=== PATIENT | female | born 1980 | race Caucasian/White ===

== ENCOUNTER 2022-08-01 13:19 | Emergency (ER) | payer SELFPAY ==
[2022-08-01 13:46] VITALS: BP 150/94; PULSE 78; RESP 18; TEMP 97.3; BMI 37.5
[2022-08-01] MEDS ORDERED: LIDOCAINE 5% TOPICAL PATCH TP ONE (14:37)
[2022-08-01] MEDS ORDERED: METHOCARBAMOL 500 MG TABLET PO ONE (14:42)
[2022-08-01] MEDS ORDERED: KETOROLAC TROMETHAMINE 30 MG/1 ML VIAL IM ONE (14:42)
[2022-08-01] MEDS ORDERED: METHOCARBAMOL 500 MG TABLET ONE (15:08)
[2022-08-01] MEDS ORDERED: KETOROLAC TROMETHAMINE 30 MG/1 ML VIAL ONE (15:08)
[2022-08-01] MEDS ORDERED: LIDOCAINE 5% TOPICAL PATCH ONE (15:08)
[2022-08-01 15:43] LABS: URINE APPEARANCE CLEAR; URINE BILIRUBIN NEGATIVE (NEGATIVE); URINE COLOR YELLOW; URINE GLUCOSE (UA) NEGATIVE (NEGATIVE); URINE KETONE NEGATIVE (NEGATIVE); URINE LEUK ESTERASE NEGATIVE (NEGATIVE); URINE NITRITE NEGATIVE (NEGATIVE); URINE PROTEIN NEGATIVE (NEGATIVE); URINE UROBILINOGEN 0.2 mg/dL (0.2-1.0)
[2022-08-01 15:48] LABS: HCG,QUALITATIVE URINE Negative
== END 2022-08-01 17:11 | disposition home or self-care (01) ==
LOC: JERFT 13:19 → JER 13:19 → JERFT 17:11
PROC: 3E023GC Introduction of Other Therapeutic Substance into Muscle, Percutaneous Approach (ICD-10-PCS; principal; 2022-08-01)
DX: S39.012A Strain of muscle, fascia and tendon of lower back, initial encounter (principal); M54.42 Lumbago with sciatica, left side; W19.XXXA Unspecified fall, initial encounter; W22.03XA Walked into furniture, initial encounter
CPT/HCPCS: 72131-TC; 81003; 84703; 87086; 99284-25

== ENCOUNTER 2023-07-01 17:57 | Emergency (ER) | payer OTHER ==
[2023-07-01 18:15] VITALS: RESP 18; BMI 49.8
[2023-07-01] MEDS ORDERED: ACETAMINOPHEN INJECTION 100 ML IVPB ONE (20:59)
[2023-07-01] MEDS ORDERED: FAMOTIDINE 20 MG/50 ML IVPB 20 MG/50 ML MG IVPB ONE (20:59)
[2023-07-01] MEDS: LACTATED RINGERS SOLUTION 1000 ML INFUS.BAG IV ONE (21:07)
[2023-07-01] MEDS: FAMOTIDINE 20 MG/50 ML IVPB 20 MG/50 ML MG IVPB ONE (21:08)
[2023-07-01] MEDS: ACETAMINOPHEN 1000 MG/100 ML BAG IVPB ONE (21:08)
[2023-07-01 21:21] LABS: EPI CELLS >36 /uL (0-25.1); HYALINE CASTS 0 /uL (0-3.1); PH,URINE 5.5 (5.0-8.0); URINE APPEARANCE CLOUDY; URINE BACTERIA 1312 /uL (0-1359); URINE BILIRUBIN NEGATIVE (NEGATIVE); URINE COLOR YELLOW; URINE GLUCOSE (UA) NEGATIVE (NEGATIVE); URINE KETONE NEGATIVE (NEGATIVE); URINE LEUK ESTERASE 1+ (NEGATIVE); URINE NITRITE NEGATIVE (NEGATIVE); URINE PROTEIN NEGATIVE (NEGATIVE); URINE RBC 11 /uL (0-23.9); URINE UROBILINOGEN 0.2 mg/dL (0.2-1.0); URINE WBC 58 /uL (0-25.8)
[2023-07-01 22:08] LABS: BASO % 0.6 % (0-2.0); EOS % 4.8 % (0-4.5); HEMATOCRIT 33.8 % (32.4-45.2); LYMPH % 35.8 % (8-40); MCH 23.8 pg (25.7-33.7); MCHC 32.4 g/dl (32.0-36.0); MEAN CELL VOLUME 73.6 fl (80-96); MEAN PLT VOLUME 8.3 fl (7.5-11.1); MONO % 6.3 % (3.8-10.2); NEUT % 52.5 % (42.8-82.8); PLATELET COUNT 306 10^3/uL (134-434); RDW 16.5 % (11.6-15.6)
[2023-07-01 22:15] LABS: POTASSIUM 3.9 mmol/L (3.5-5.1)
[2023-07-01 22:17] LABS: ALBUMIN 3.2 g/dl (3.4-5.0); BLOOD UREA NITROGEN 10.2 mg/dL (7-18)
[2023-07-01 22:21] LABS: BILIRUBIN,TOTAL 0.2 mg/dL (0.2-1); CREATININE 0.5 mg/dL (0.55-1.3); TOT PROT 6.9 g/dl (6.4-8.2)
[2023-07-02] MEDS ORDERED: CEFTRIAXONE 1 GM/50 ML BAG ONE (01:54)
[2023-07-02] MEDS: CEFTRIAXONE 1,000 MG in DEXTROSE 5%-WATER - 50 ML IVPB ONE (01:59)
[2023-07-02 02:48] VITALS: BP 125/69; PULSE 75; TEMP 98.1
== END 2023-07-02 02:47 | disposition home or self-care (01) ==
LOC: JERFT 17:57 → JER 17:57
PROC: 3E033NZ Introduction of Analgesics, Hypnotics, Sedatives into Peripheral Vein, Percutaneous Approach (ICD-10-PCS; 2023-07-01)
PROC: 3E03329 Introduction of Other Anti-infective into Peripheral Vein, Percutaneous Approach (ICD-10-PCS; principal; 2023-07-02)
PROC: 3E033GC Introduction of Other Therapeutic Substance into Peripheral Vein, Percutaneous Approach (ICD-10-PCS; 2023-07-02)
DX: N39.0 Urinary tract infection, site not specified (principal); R10.30 Lower abdominal pain, unspecified; R30.0 Dysuria; R30.9 Painful micturition, unspecified
CPT/HCPCS: 36415; 74177-TC; 80053; 81003; 84703; 85025; 96365; 96375; 99285-25; J0131

== ENCOUNTER 2023-08-11 10:38 | Emergency (ER) | payer OTHER ==
[2023-08-11 10:52] VITALS: RESP 18; BMI 42.9
[2023-08-11] MEDS ORDERED: KETOROLAC TROMETHAMINE 15 MG/ML VIAL ONE (12:29)
[2023-08-11 12:35] LABS: BASO % 1.5 % (0-2.0); EOS % 5.3 % (0-4.5); HEMATOCRIT 35.6 % (32.4-45.2); LYMPH % 26.6 % (8-40); MCH 22.9 pg (25.7-33.7); MCHC 31.1 g/dl (32.0-36.0); MEAN CELL VOLUME 73.8 fl (80-96); MEAN PLT VOLUME 8.6 fl (7.5-11.1); MONO % 6.8 % (3.8-10.2); NEUT % 59.8 % (42.8-82.8); PLATELET COUNT 379 10^3/uL (134-434); RBC 4.82 M/mm3 (3.60-5.2); RDW 16.8 % (11.6-15.6); WHITE BLOOD COUNT 9.5 K/mm3 (4.0-10.0)
[2023-08-11 12:55] LABS: CHLORIDE 106 mmol/L (98-107); SODIUM 133 mmol/L (136-145)
[2023-08-11 12:57] LABS: CALCIUM 8.7 mg/dL (8.5-10.1)
[2023-08-11 12:58] LABS: ALBUMIN 3.2 g/dl (3.4-5.0); BLOOD UREA NITROGEN 13.5 mg/dL (7-18); CO2 24 mmol/L (21-32); GLUCOSE,RANDOM 90 mg/dL (74-106)
[2023-08-11] MEDS: KETOROLAC TROMETHAMINE 15 MG/ML VIAL IVPUSH ONE (12:58)
[2023-08-11 13:02] LABS: CREATININE 0.7 mg/dL (0.55-1.3); SGOT/AST 85 U/L (15-37); SGPT/ALT 35 U/L (13-61)
[2023-08-11 13:03] LABS: BILIRUBIN,TOTAL 0.5 mg/dL (0.2-1); TOT PROT 7.4 g/dl (6.4-8.2)
[2023-08-11 13:05] LABS: ALK PHOS 93 U/L (45-117)
[2023-08-11 13:08] LABS: ANION GAP 2 mmol/L (4-13); POTASSIUM 6.8 mmol/L (3.5-5.1)
[2023-08-11] MEDS ORDERED: ACETAMINOPHEN INJECTION 100 ML IVPB ONE (13:38)
[2023-08-11] MEDS: ACETAMINOPHEN 1000 MG/100 ML BAG IVPB ONE (13:43)
[2023-08-11 15:55] LABS: BLOOD UREA NITROGEN 12.9 mg/dL (7-18); CALCIUM 9.2 mg/dL (8.5-10.1)
[2023-08-11 15:57] LABS: CREATININE 0.6 mg/dL (0.55-1.3)
[2023-08-11 17:21] VITALS: BP 122/69; PULSE 77; TEMP 98.2
== END 2023-08-11 18:30 | disposition home or self-care (01) ==
LOC: JER 10:38
PROC: 3E030NZ Introduction of Analgesics, Hypnotics, Sedatives into Peripheral Vein, Open Approach (ICD-10-PCS; principal; 2023-08-11)
PROC: 3E0303Z Introduction of Anti-inflammatory into Peripheral Vein, Open Approach (ICD-10-PCS; 2023-08-11)
DX: S39.012A Strain of muscle, fascia and tendon of lower back, initial encounter (principal); S16.1XXA Strain of muscle, fascia and tendon at neck level, initial encounter; R07.2 Precordial pain; R06.02 Shortness of breath; R51.9 Headache, unspecified; R42 Dizziness and giddiness; R11.0 Nausea; M79.10 Myalgia, unspecified site; R10.9 Unspecified abdominal pain; V43.52XA Car driver injured in collision with other type car in traffic accident, initial encounter
CPT/HCPCS: 36415; 70450-TC; 71045-TC-FY; 72125-TC; 72128-TC; 80048; 80053; 84703; 85025; 99285-25; J0131